=== PATIENT | female | born 1980 | race Caucasian/White ===

== ENCOUNTER 2018-07-15 08:48 | Inpatient (IN) | payer OTHER, SELFPAY ==
[~2018-07-15] VITALS: Ht 152.4 cm; Wt 64.0 kg
[2018-07-15] MEDS ORDERED: KETOROLAC 30MG/ML VIAL IV STA (09:12)
[2018-07-15] MEDS ORDERED: SODIUM CHLORIDE 0.9% 1,000 ML IV ONE ×2 (09:12→15:15)
[2018-07-15] MEDS ORDERED: ONDANSETRON 4MG ODT PO STA (09:12)
[2018-07-15] MEDS ORDERED: FAMOTIDINE 20MG/2ML VIAL IV STA (09:12)
[2018-07-15 09:29] LABS: BASOPHILS % 0.5 % (0.0-2.0); EOSINOPHILS % 0.4 % (0.0-5.0); HEMOGLOBIN. 12.7 g/dL (12.0-16.0); LYMPHOCYTES % 16.2 % (20.0-50.0); MEAN CORPUSCULAR HEMOGLOBIN 29.6 pg (28.0-32.0); MEAN CORPUSCULAR VOLUME 88.7 fL (81.0-99.0); MEAN PLATELET VOLUME 8.5 fl (7.4-10.4); MONOCYTES % 6.4 % (2.0-8.0); NEUTROPHILS % 76.5 % (40.0-76.0); PLATELET 291 x1000/uL (130-400); RED BLOOD CELL COUNT 4.29 mill/uL (4.2-5.4); RED CELL DISTRIBUTION WIDTH 14.2 % (11.6-14.6)
[2018-07-15 09:35] LABS: CHLORIDE 102 mEq/L (98-107)
[2018-07-15 09:37] LABS: INR 0.9; PROTHROMBIN TIME 9.5 sec (9.6-11.0)
[2018-07-15] MEDS ORDERED: MORPHINE SULFATE 4 MG/ML CPJ (NOT FOR IM USE) IV STA (10:43)
[2018-07-15 12:40] LABS: CLARITY URINE TURBID (CLEAR); COLOR URINE YELLOW (YELLOW); KETONES URINE 1+ (NEGATIVE); LEUKOCYTE ESTERASE URINE TRACE (NEGATIVE); NITRITE URINE NEGATIVE (NEGATIVE); OCCULT BLOOD URINE 3+ (NEGATIVE); PH URINE 5.5 (4.5-8.0); PROTEIN URINE 2+ (NEGATIVE); SPECIFIC GRAVITY URINE 1.023 (1.005-1.030); UROBILINOGEN URINE 0.2 E.U./dL (0.2-1.0)
[2018-07-15 14:39] LABS: HCG SCREEN NEGATIVE
[2018-07-15] MEDS ORDERED: MORPHINE SULFATE 4 MG/ML CPJ (NOT FOR IM USE) IV NR (14:42)
[2018-07-15] MEDS ORDERED: PIPERACILLIN/TAZOBACTAM 3.375GM/50ML PREMIX IV ONE (15:15)
[2018-07-15] MEDS ORDERED: METRONIDAZOLE 500 MG PREMIX 100 ML IV ONE (15:30)
[2018-07-15] MEDS ORDERED: LEVOFLOXACIN 750MG PREMIX 150 ML IV ONE (15:30)
[2018-07-15] MEDS ORDERED: BUPIVACAINE HCL/PF 0.5% (5MG/ML) 10ML ONE (15:41)
[2018-07-15] MEDS ORDERED: FENTANYL CITRATE/PF 50MCG/ML 2ML VIAL ONE (15:44)
[2018-07-15] MEDS ORDERED: MIDAZOLAM HCL 2 MG/2 ML VIAL ONE (15:45)
[2018-07-15] MEDS ORDERED: ETOMIDATE 2MG/ML 10ML VIAL IV ONE (16:04)
[2018-07-15] MEDS ORDERED: ROCURONIUM BROMIDE 10MG/ML VIAL 5ML IV ONE (16:43)
[2018-07-15] MEDS ORDERED: BACITRACIN 50,000 UNITS/VIAL ONE (16:59)
[2018-07-15] MEDS ORDERED: GLYCOPYRROLATE 0.2 MG/ML 2ML VIAL ONE (17:24)
[2018-07-15] MEDS ORDERED: NEOSTIGMINE METHYLSULFATE 1MG/ML 10 ML VIAL ONE (17:24)
[2018-07-15] MEDS ORDERED: ACETAMINOPHEN 650MG SUPP PR PRN (17:45)
[2018-07-15] MEDS ORDERED: ONDANSETRON HCL 4MG/2ML INJ IV PRN ×2 (17:45→18:00)
[2018-07-15] MEDS ORDERED: HYDROMORPHONE HCL/PF 2MG/ML CPJ IV PRN ×2 (18:00)
[2018-07-15] MEDS ORDERED: MEPERIDINE HCL/PF 25MG/ML CPJ IM SCH (18:00)
[2018-07-15] MEDS: MORPHINE SULFATE 2 MG/ML CPJ (NOT FOR IM USE) IV PRN (18:46)
[2018-07-15] MEDS ORDERED: ONDANSETRON INJ IV PRN (19:30)
[2018-07-15] MEDS ORDERED: NALOXONE INJ IV PRN (19:30)
[2018-07-15] MEDS ORDERED: DIPHENHYDRAMINE INJ IV PRN (19:30)
[2018-07-15] MEDS: HYDROMORPHONE HCL IV PRN (20:41)
[2018-07-15] MEDS: SODIUM CHLORIDE IV PRN (20:41)
[2018-07-15 21:05] VITALS: BP 122/79
[2018-07-16] VITALS (7 sets, daily range): BP systolic 97–127; BP diastolic 42–79
[2018-07-16] MEDS: DEXT 5%/0.45% NACL KCL 20MEQ/L 1,000 ML IV SCH ×2 (00:19→08:29)
[2018-07-16] MEDS: METRONIDAZOLE 500 MG PREMIX 100 ML IV SCH ×3 (00:20→14:22)
[2018-07-16] MEDS: ACETAMINOPHEN 650MG SUPP PR SCH ×2 (00:21→06:00)
[2018-07-16] MEDS: FAMOTIDINE 20MG/2ML VIAL IV SCH ×2 (08:30→21:54)
[2018-07-16] MEDS: MORPHINE SULFATE 2 MG/ML CPJ (NOT FOR IM USE) IV PRN (10:58)
[2018-07-16 12:21] LABS: HEMATOCRIT 32.4 % (36.0-48.0); HEMOGLOBIN 10.8 g/dL (12.0-16.0); MEAN CORPUSCULAR VOLUME 90.3 fL (81.0-99.0); PLATELET 218 x1000/uL (130-400); RED BLOOD CELL COUNT 3.59 mill/uL (4.2-5.4); RED CELL DISTRIBUTION WIDTH 14.2 % (11.6-14.6)
[2018-07-16 12:27] LABS: CHLORIDE 110 mEq/L (98-107)
[2018-07-16] MEDS ORDERED: LEVOFLOXACIN 500MG PREMIX 100 ML IV NR (14:00)
[2018-07-17] VITALS: BP 110/43
[2018-07-17] MEDS: DEXT 5%/0.45% NACL KCL 20MEQ/L 1,000 ML IV SCH ×3 (01:21→23:13)
[2018-07-17 04:00] VITALS: BP 105/48
[2018-07-17 06:12] LABS: HEMATOCRIT. 31.7 % (36.0-48.0); HEMOGLOBIN. 10.6 g/dL (12.0-16.0); MEAN PLATELET VOLUME 8.3 fl (7.4-10.4); PLATELET 241 x1000/uL (130-400); RED BLOOD CELL COUNT 3.52 mill/uL (4.2-5.4); RED CELL DISTRIBUTION WIDTH 14.4 % (11.6-14.6)
[2018-07-17 06:22] LABS: CHLORIDE 106 mEq/L (98-107)
[2018-07-17 08:00] VITALS: BP 115/70
[2018-07-17] MEDS: FAMOTIDINE 20MG/2ML VIAL IV SCH ×2 (09:47→21:10)
[2018-07-17 12:00] VITALS: BP 122/71
[2018-07-17 13:21] LABS: PLATELET ESTIMATE NORMAL
[2018-07-17] MEDS: HYDROMORPHONE HCL IV PRN (14:11)
[2018-07-17] MEDS: SODIUM CHLORIDE IV PRN (14:11)
[2018-07-17] MEDS ORDERED: CEFTRIAXONE 1 G PREMIX 50 ML IV SCH (15:00)
[2018-07-17 15:22] LABS: CLARITY URINE CLEAR (CLEAR); COLOR URINE YELLOW (YELLOW); KETONES URINE 1+ (NEGATIVE); LEUKOCYTE ESTERASE URINE NEGATIVE (NEGATIVE); NITRITE URINE NEGATIVE (NEGATIVE); OCCULT BLOOD URINE 3+ (NEGATIVE); PROTEIN URINE 1+ (NEGATIVE); SPECIFIC GRAVITY URINE 1.007 (1.005-1.030); UROBILINOGEN URINE 0.2 E.U./dL (0.2-1.0)
[2018-07-17 16:00] VITALS: BP 132/73
[2018-07-17 20:00] VITALS: BP 113/59
[2018-07-18] VITALS: BP 117/64
[2018-07-18 04:00] VITALS: BP 128/75
[2018-07-18 07:51] LABS: BASOPHILS % 0.1 % (0.0-2.0); EOSINOPHILS % 0.3 % (0.0-5.0); HEMATOCRIT. 30.1 % (36.0-48.0); HEMOGLOBIN. 10.1 g/dL (12.0-16.0); LYMPHOCYTES % 8.5 % (20.0-50.0); MEAN CORPUSCULAR HEMOGLOBIN 30.1 pg (28.0-32.0); MEAN CORPUSCULAR VOLUME 89.7 fL (81.0-99.0); MEAN PLATELET VOLUME 8.2 fl (7.4-10.4); MONOCYTES % 4.2 % (2.0-8.0); NEUTROPHILS % 86.9 % (40.0-76.0); PLATELET 262 x1000/uL (130-400); RED BLOOD CELL COUNT 3.36 mill/uL (4.2-5.4); RED CELL DISTRIBUTION WIDTH 14.3 % (11.6-14.6)
[2018-07-18 08:00] VITALS: BP 117/58
[2018-07-18] MEDS: DEXT 5%/0.45% NACL KCL 20MEQ/L 1,000 ML IV SCH ×2 (08:18→17:59)
[2018-07-18] MEDS: FAMOTIDINE 20MG/2ML VIAL IV SCH ×2 (08:18→21:29)
[2018-07-18 08:28] LABS: CHLORIDE 105 mEq/L (98-107)
[2018-07-18 12:00] VITALS: BP 116/75
[2018-07-18 16:00] VITALS: BP 104/80
[2018-07-18 20:00] VITALS: BP 139/89
[2018-07-19 00:11] VITALS: BP 127/79
[2018-07-19] MEDS: DEXT 5%/0.45% NACL KCL 20MEQ/L 1,000 ML IV SCH ×2 (03:25→14:59)
[2018-07-19 04:00] VITALS: BP 116/77
[2018-07-19 08:00] VITALS: BP_SYST 136; BP_DIAS 71; BP_DIAS 90
[2018-07-19] MEDS: FAMOTIDINE 20MG/2ML VIAL IV SCH ×2 (08:32→21:48)
[2018-07-19] MEDS ORDERED: HYDROCODONE/ACETAMINOPHEN 5/325MG TABLET PO PRN (09:45)
[2018-07-19 10:46] LABS: BASOPHILS % 0.3 % (0.0-2.0); EOSINOPHILS % 1.3 % (0.0-5.0); HEMATOCRIT. 32.3 % (36.0-48.0); HEMOGLOBIN. 10.8 g/dL (12.0-16.0); LYMPHOCYTES % 11.1 % (20.0-50.0); MEAN CORPUSCULAR HEMOGLOBIN 29.8 pg (28.0-32.0); MEAN CORPUSCULAR VOLUME 89.4 fL (81.0-99.0); MEAN PLATELET VOLUME 8.3 fl (7.4-10.4); MONOCYTES % 8.4 % (2.0-8.0); NEUTROPHILS % 78.9 % (40.0-76.0); PLATELET 294 x1000/uL (130-400); RED BLOOD CELL COUNT 3.61 mill/uL (4.2-5.4)
[2018-07-19 10:52] LABS: CHLORIDE 106 mEq/L (98-107)
[2018-07-19 12:00] VITALS: BP_SYST 119; BP_SYST 132; BP_DIAS 74; BP_DIAS 81
[2018-07-19 16:00] VITALS: BP_SYST 121; BP_SYST 127; BP_DIAS 76; BP_DIAS 86
[2018-07-19 20:00] VITALS: BP 133/83
[2018-07-20] VITALS: BP 117/76
[2018-07-20 04:00] VITALS: BP 133/86
[2018-07-20] MEDS: DEXT 5%/0.45% NACL KCL 20MEQ/L 1,000 ML IV SCH ×2 (04:59→10:30)
[2018-07-20 07:36] LABS: BASOPHILS % 0.4 % (0.0-2.0); EOSINOPHILS % 2.3 % (0.0-5.0); HEMATOCRIT. 28.9 % (36.0-48.0); MEAN CORPUSCULAR HEMOGLOBIN 30.6 pg (28.0-32.0); MEAN CORPUSCULAR VOLUME 88.5 fL (81.0-99.0); MEAN PLATELET VOLUME 8.3 fl (7.4-10.4); MONOCYTES % 12.6 % (2.0-8.0); NEUTROPHILS % 65.7 % (40.0-76.0); PLATELET 305 x1000/uL (130-400); RED BLOOD CELL COUNT 3.27 mill/uL (4.2-5.4); RED CELL DISTRIBUTION WIDTH 13.8 % (11.6-14.6)
[2018-07-20 08:00] VITALS: BP_SYST 126; BP_SYST 132; BP_DIAS 68; BP_DIAS 83
[2018-07-20] MEDS: FAMOTIDINE 20MG/2ML VIAL IV SCH (08:19)
[2018-07-20 08:30] LABS: CHLORIDE 105 mEq/L (98-107)
[2018-07-20 12:00] VITALS: BP_SYST 121; BP_SYST 133; BP_DIAS 67; BP_DIAS 75
[2018-07-20 12:37] VITALS: BP 121/67
== END 2018-07-20 12:59 | disposition home or self-care (01) | DRG 223 ==
LOC: ER 08:48 → 6EST 21:10 → ENRESERV 21:45 → 6EST 07-18 15:54
PROVIDERS: ADMIT Family Medicine Adult Medicine; ATTEND Emergency Medicine
PROC: 0DU907Z Supplement Duodenum with Autologous Tissue Substitute, Open Approach (ICD-10-PCS; principal; 2018-07-15)
DX: K26.5 Chronic or unspecified duodenal ulcer with perforation (principal); K65.9 Peritonitis, unspecified; E44.0 Moderate protein-calorie malnutrition; F17.210 Nicotine dependence, cigarettes, uncomplicated; N39.0 Urinary tract infection, site not specified; Z87.11 Personal history of peptic ulcer disease; Z68.27 Body mass index [BMI] 27.0-27.9, adult
CPT/HCPCS: 36415; 74176; 76700; 80048; 84703; 85027; 87070; 87075; 96374; 96375; 99285; C1893; J0696; J1170; J1885; J1956; J2175; J2250; J2270; J2405; J2710; J3010; J3490; J7030; J7070; Q0162